=== PATIENT | male | born 1955 | race Caucasian/White ===

== ENCOUNTER → 2018-08-07 | Outpatient (CLI) | payer OTHER ==
[~2018-08-07] MED LIST: ACETAMINOPHEN325 M1 PO; AMLODIPINE BESY10 MG PO; AMLODIPINE BESYL5 MG PO; APAP650 PO; ASPIRIN325 PO; ATORVASTATIN CA40 MG PO; BYSTOLIC20 MG PO; CARDURA4 MG PO; CARVEDILOL12.5 MG PO; ENOXAPARIN30 MG/0.3 SQ; FISH OIL 1,0001 EAC5 PO; FISH OIL 1,001000 M2 PO; FUROSEMIDE 40 M40 M1 PO; GLIPIZIDE 5 MG T5 MG PO; GLIPIZIDE ER5 MG PO; GLUCOPHAGE500 MG PO; GLUCOTROL5 MG PO; GLYBURIDE 5 MG T5 M1 PO; HYDRALAZINE 2525 MG PO; K-DUR 20 MEQ T20 MEQ PO; KLOR-CON 1010 MEQ PO; LISINOPRIL40 MG PO; LOPRESSOR100 MG PO; LOVENOX; MAXZIDE-25 MG1 EACH PO; MIRALAX255 GM PO; NIACIN 500 MG500 M1 PO; NIASPAN ER 101000 M1; NORVASC5 MG PO; OXYIR5 MG; OXYIR5 MG PO; PERCOCET 5-3251 EACH PO; POTASSIUM PO; PRADAXA150 MG PO; PREDNISONE 20 M20 MG PO; PRINIVIL20 MG PO; SIMCOR 1,000-41 EACH PO; TEKTURNA PO; TEKTURNA300 MG PO; TORSEMIDE20 MG PO; TRAMADOL 50 MG50 MG PO; UNICOMPLEX M TA1 TA1 PO; VICODIN 5-5001 EACH; ZOCOR40 MG; ZOCOR40 MG PO
--- NOTE | 2018-08-07 16:47 | NUR ---
PATIENT BROUGHT TO HOLDING AREA. TICC LINE EXISTS IN RIGHT UPPER CHEST WITH ENTRY AT RIGHT IJ. TICC LINE PULLED WITHOUT ANY DIFFICULTY. NO BLEEDING NOTED. PLACED STERILE DRESSING AND PATIENT WAS DISCHARGED.
== END ==
LOC: M.INT 14:23
DX: Z45.2 Encounter for adjustment and management of vascular access device (principal)